=== PATIENT | female | born 1985 | race Caucasian/White ===

== ENCOUNTER 2016-07-08 15:50 | Emergency (ER) | payer SELFPAY ==
[~2016-07-08] VITALS: Ht 165.1 cm; Wt 70.3 kg
[2016-07-08 16:27] VITALS: BP 123/76
--- NOTE | 2016-07-08 20:02 | NUR ---
PATIENT LEFT WITHOUT BEING SEEN BY DR. CHAN. NO FURTHER CARE PROVIDED FOR PATIENT.
== END 2016-07-08 17:15 | disposition left against medical advice (07) ==
LOC: MED 15:50
DX: R22.0 Localized swelling, mass and lump, head (principal); Z53.21 Procedure and treatment not carried out due to patient leaving prior to being seen by health care provider